=== PATIENT | male | born 1975 | race Caucasian/White ===

== ENCOUNTER 2021-03-04 22:05 | Emergency (ER) | payer OTHER ==
[~2021-03-04 22:05] MED LIST: NORCO 5-325 TA1 EACH PO
[2021-03-04 22:59] LABS: BASOPHIL 0.8 % (0-2); BILIRUBIN NEGATIVE (NEGATIVE); BLOOD NEGATIVE Ery/uL (NEGATIVE); CLARITY CLEAR (CLEAR); COLOR YELLOW (YELLOW); EOSINOPHIL 1.7 % (0-5); GLUCOSE (U) NORMAL (NORMAL); HCT 45.2 % (42.0-52.0); LEUKOCYTES NEGATIVE Leu/uL (NEGATIVE); LYMPHOCYTE 17.5 % (15-48); MCH 28.5 pg (25.0-31.0); MCHC 33.2 g/dL (32.0-36.0); MCV 85.9 fL (78.0-100.0); MONOCYTE 12.4 % (0-12); MPV 9.7 fL (6.0-9.5); NEUTROPHIL 66.9 % (41-80); NITRITE NEGATIVE (NEGATIVE); NRBC 0; PLT 321 K/uL (150-400); PROTEIN NEGATIVE (NEGATIVE); RBC 5.26 M/uL (4.70-6.00); RDW 13.3 % (11.5-14.0); SPECIFIC GRAVITY 1.025 (1.001-1.030); UROBILINOGEN 0.2 mg/dL (0.2-1.0); WBC 10.1 K/uL (4.0-10.5); pH 5.5 (5.0-9.0)
[2021-03-04 23:26] LABS: ALBUMIN 3.3 g/dL (3.4-5.0); BILIRUBIN - TOTAL 0.2 mg/dL (0.2-1.0); BUN/CREAT RATIO (CALC) 17.2 RATIO; CREATININE 1.16 mg/dL (0.67-1.17); GLOBULIN (CALCULATION) 4.3 g/dL; POTASSIUM 3.9 mmol/L (3.5-5.1); TOTAL PROTEIN 7.6 g/dL (6.4-8.2)
[2021-03-05] MEDS ORDERED: METRONIDAZOLE500 MG PO (02:13)
[2021-03-05] MEDS ORDERED: CIPRO500 MG PO (02:13)
== END 2021-03-05 02:30 | disposition home or self-care (01) ==
LOC: FER 22:05
PROVIDERS: Emergency Medicine Emergency Medical Services
DX: K57.32 Diverticulitis of large intestine without perforation or abscess without bleeding (principal); R30.0 Dysuria; Z86.16 Personal history of COVID-19; Z88.2 Allergy status to sulfonamides
CPT/HCPCS: 36415; 80053; 81003; 85025; 93005; J1170; J2405